=== PATIENT | female | born 1960 | race Caucasian/White ===

== ENCOUNTER 2020-10-21 17:16 | Outpatient (CLI) | payer OTHER, SELFPAY ==
--- NOTE | ~2020-10-21 | MM_ITS ---
EXAMINATION: MM screening [facility] w sandra HISTORY: Screening mammogram TECHNIQUE: Craniocaudal and mediolateral oblique 3-D tomosynthesis images were obtained and synthetic 2-D images were generated. CAD analysis was submitted and interpreted. COMPARISON: , 07/16/2018, 07/12/2017 bilateral digital screening mammogram examinations BREAST PARENCHYMAL COMPOSITION: There are scattered areas of fibroglandular density. FINDINGS: There is no evidence of suspicious mass, calcification, or architectural distortion to sugg est malignancy in either breast. There has been no suspicious interval change. IMPRESSION: 1. No mammographic evidence of malignancy. 2. Recommend routine screening mammography in one year. BI-RADS Category 1: Negative Reviewed, dictated and finalized at location A. [employer]
== END 2020-10-21 17:17 | disposition home or self-care (01) ==
LOC: ANHIMG 17:21
PROVIDERS: PCP Physician Assistant; Visit Provider Obstetrics & Gynecology
DX: Z12.31 Encounter for screening mammogram for malignant neoplasm of breast (principal)
CPT/HCPCS: 77063; 77067

== ENCOUNTER 2021-12-27 17:34 | Outpatient (CLI) | payer OTHER, SELFPAY ==
--- NOTE | ~2021-12-27 | MM_ITS ---
EXAMINATION: MM screening [facility] BI w sandra HISTORY: Screening mammogram TECHNIQUE: Craniocaudal and mediolateral oblique 3-D tomosynthesis images were obtained and synthetic 2-D images were generated. CAD analysis was submitted and interpreted. COMPARISON: 10/21/2020, 08/19/2019, 07/16/2018 BREAST PARENCHYMAL COMPOSITION: There are scattered areas of fibroglandular density. FINDINGS: There is no suspicious mass, calcification, or architectural distortion to suggest malignan cy in either breast. There has been no suspicious interval change. IMPRESSION: 1. No mammographic evidence of malignancy. 2. Recommend routine screening mammography in one year. BI-RADS Category 1: Negative Reviewed, dictated and finalized at location A.
== END 2021-12-27 17:35 | disposition home or self-care (01) ==
PROVIDERS: Visit Provider Obstetrics & Gynecology
DX: Z12.31 Encounter for screening mammogram for malignant neoplasm of breast (principal)
CPT/HCPCS: 77063; 77067

== ENCOUNTER 2022-11-14 11:51 | Emergency (ER) | payer OTHER, SELFPAY ==
[2022-11-14 11:58] VITALS: BP 123/76; PULSE 67; RESP 12; TEMP 36.4; O2SAT 100
[2022-11-14 12:01] VITALS: BP 123/76; PULSE 67; RESP 12; TEMP 36.4; O2SAT 100
--- NOTE | 2022-11-14 12:17 | ED.EYEPROB ---
HPI - Eye Problem General Chief complaint: Eye Problems Stated complaint: Eyes Irritation Time Seen by Provider: 11/14/22 12:17 Source: patient Mode of arrival: ambulatory Limitations: no limitations History of Present Illness HPI Narrative: 51 old female presented for complaint of bilateral eye irritation. Endorses the left is worse than the right. Onset last night. She endorses itching, irritated sensation, and redness to the eyes. Endorses this morning mild drainage in the corner of the left eye and feels it is spreading to the right. She denies photophobia, vision changes, headaches or dizziness. She used lubricating drops for symptoms. She denies sick contacts. Wears contact lenses. chief complaint: eye pain Related Data Home Medications Medication Instructions Recorded Confirmed blood sugar diagnostic (Regis #10 ea 11/05/19 12/23/21 Blood Glucose Test Strip) lancets #50 ea 11/05/19 12/23/21 gabapentin 100 mg capsule 100 mg PO BID 09/16/20 11/14/22 lisinopril 2.5 mg tablet 2.5 mg PO DAILY 12/23/21 11/14/22 Allergies Allergy/AdvReac Type Severity Reaction Status Date / Time [id number] Reductase Allergy Unknown Visual Verified 11/14/22 12:00 Inhibitor disturbance [Cfqvufr-Xpt-Xtc Reductase Inhibitor] Review of Systems Review of Systems: CONSTITUTIONAL: Denies body aches, fever, chills EYES:per HPI ENT: Denies rhinorrhea, congestion, sore throat, or otalgia. CARDIOVASCULAR: Denies chest pain, palpitations RESPIRATORY: Denies cough or dyspnea. GASTROINTESTINAL: Denies abdominal pain, nausea, vomiting, or diarrhea. SKIN: Denies rash, itching, or wounds. MUSCULOSKELETAL: Denies back pain, joint pain, or myalgia. NEUROLOGIC: Denies headache, numbness, tingling, or weakness. All systems reviewed & are unremarkable except as noted in HPI and below PMFSH Past Medical History Medical History Acid reflux Benign breast cyst in female aspirated cyst-left breast Dyslipidemia Herpes Hypothyroidism (acquired) Pelvis tilted Screening mammogram, encounter for Seizures as a child, not since 11 y/o Type 2 diabetes mellitus Vitamin D deficiency Surgical History Surgical History History of cryosurgery 1994 cervix--dysplasia History of dilatation and curettage 1994 hscope d&c History of Mohs surgery for squamous cell carcinoma of skin Right leg - 2009 History of robot-assisted laparoscopic hysterectomy 12/24/2014 RA TLH--uterine fibroids History of tonsillectomy 2015 Status post creation of urethral sling by suprapubic approach 1970 Family History Family History Mother Diabetes mellitus Family history of coronary artery disease Heart disease Squamous cell carcinoma Cerebrovascular accident Father Malignant neoplasm of prostate Heart disease Social History Social History Smoking status: Never smoker Second hand tobacco smoke exposure: No Alcohol intake: current Drinks per week: 2 Substance use: never Substance use type: does not use Living arrangements: other Additional living arrangements comments: spouse Occupation/Education: occupation Additional occupation/education comments: insurance Gender identity (if verbalized by the patient): Female Sexual Orientation (if Verbalized by the Patient): Straight or Heterosexual Comments At time of signature, I have reviewed and agree with nursing past medical, surgical, social and family history unless otherwise noted. Please see nursing chart for further information. There is no relevant family history pertinent to the presenting complaint Exam Narrative: GENERAL: Well-appearing HEAD: Normocephalic, atraumatic. EYES: Mild left conjunctival injection, mild yellow drai
== END 2022-11-14 12:27 | disposition home or self-care (01) ==
PROVIDERS: Emergency Provider Nurse Practitioner Family; PCP Physician Assistant
DX: H10.9 Unspecified conjunctivitis (principal); K21.9 Gastro-esophageal reflux disease without esophagitis; E78.5 Hyperlipidemia, unspecified; E03.9 Hypothyroidism, unspecified; E11.9 Type 2 diabetes mellitus without complications; Z85.828 Personal history of other malignant neoplasm of skin
CPT/HCPCS: 99213; G0463

== ENCOUNTER 2023-03-09 12:10 | Outpatient (CLI) | payer OTHER, SELFPAY ==
--- NOTE | ~2023-03-09 | MM_ITS ---
EXAMINATION: MM screening [facility] w sandra HISTORY: Screening TECHNIQUE: Craniocaudal and mediolateral oblique 3-D tomosynthesis images were obtained and synthetic 2-D images were generated. CAD analysis was submitted and interpreted. COMPARISON: Comparison to multiple prior studies sequentially, with oldest reviewed study dated 06/2016. BREAST PARENCHYMAL COMPOSITION: There are scattered areas of fibroglandular density. FINDINGS: There are developing bilateral breast asymmetries with possible architectural distortion in the upper outer quadrant of both breasts, middle third. IMPRESSION: 1. Developing bilateral breast asymmetries. 2. Additional mammographic views and possible breast ultrasound are recommended. BI-RADS Category 0: Incomplete: Needs additional imaging evaluation. Reviewed, dictated and finalized at location A. IMPRESSION: 1. Developing bilateral breast asymmetries. 2. Additional mammographic views and possible breast ultrasound are recommended . BI-RADS Category 0: Incomplete: Needs additional imaging evaluation.
== END 2023-03-09 12:11 | disposition home or self-care (01) ==
LOC: ANHIMG 12:14
PROVIDERS: PCP Physician Assistant; Visit Provider Obstetrics & Gynecology
DX: Z12.31 Encounter for screening mammogram for malignant neoplasm of breast (principal); R92.8 Other abnormal and inconclusive findings on diagnostic imaging of breast
CPT/HCPCS: 77063; 77067

== ENCOUNTER 2023-04-12 11:58 | Outpatient (CLI) | payer OTHER, SELFPAY ==
--- NOTE | ~2023-04-12 | MMUS_ITS ---
EXAMINATION: MM diagnostic [facility] BI w sandra, US breast BI limited HISTORY: Developing bilateral mammographic asymmetries reported on 03/19/2023 screening mammogram exam ination TECHNIQUE: Additional 3-D tomosynthesis images of both breasts were performed and synthetic 2-D image s were generated. CAD analysis was submitted and interpreted. High resolution bilateral upper outer a nd lower-outer quadrant breast ultrasound was performed. COMPARISON: 03/19/2023 bilateral screening mammogram FINDINGS: MAMMOGRAPHIC FINDINGS: No suspicious mass or architectural distortion, malignant calcification, skin thickening or retractio n of either breast is evident. Occasional benign calcifications are noted bilaterally. ULTRASOUND: Right breast: 7:00 near nipple: 2.5 x 4.4 mm circumscribed sonolucency with through transmission, no internal vascu larity, consistent with simple cyst 7:00 5 cm from nipple: Parallel circumscribed septated cyst measuring 3.6 x 7.4 x 4.6 mm, with throug h transmission posterior enhancement, no internal vascularity, consistent with benign septated cyst Left breast: No suspicious mass or shadowing is noted in the upper outer or lower outer quadrants of the left breast. IMPRESSION: 1. Benign findings; no mammographic evidence of malignancy 2. Routine annual mammographic screening is recommended BI-RADS Category 2: Benign finding(s). Reviewed, dictated and finalized at location A. IMPRESSION: 1. Benign findings; no mammographic evidence of malignancy 2. Routine annual mammographic screening is recommended BI-RADS Category 2: Benign finding(s).
== END 2023-04-12 11:59 | disposition home or self-care (01) ==
PROVIDERS: PCP Physician Assistant; Visit Provider Obstetrics & Gynecology
DX: R92.8 Other abnormal and inconclusive findings on diagnostic imaging of breast (principal)
CPT/HCPCS: 76642; 77062; 77066; G0279

== ENCOUNTER → 2025-01-26 13:31 | Outpatient (CLI) | payer OTHER, SELFPAY ==
--- NOTE | ~2025-01-26 | XR_ITS ---
[id number] Ordering provider: Marilin Singer, PA History: . NECK PAIN . Comparison: None. FINDINGS: VERTEBRAL BODIES: Normal height and alignment. No visible fracture or subluxation. The dens is intact . DISK SPACES: Narrowing of the disc C5-C6. Otherwise, Well maintained. Multilevel facet joint disease. Multilevel uncovertebral joint osteoarthritic changes. PARASPINOUS SOFT TISSUES: No prevertebral soft tissue swelling. IMPRESSION: No acute osseous abnormality cervical spine. Degenerative disc disease at the level of C5-C6. Reviewed, dictated and finalized at location A.
== END ==
LOC: EXPCRAD 13:34
PROVIDERS: PCP Physician Assistant; Visit Provider Physician Assistant
DX: M50.322 Other cervical disc degeneration at C5-C6 level (principal)
CPT/HCPCS: 72040